=== PATIENT | male | born 1965 | race Caucasian/White ===

== ENCOUNTER → 2021-08-18 | Outpatient (CLI) | payer BC ==
--- NOTE | 2021-08-18 15:08 | RAD ---
EXAM: Bilateral diagnostic mammogram; bilateral breast sonogram. HISTORY: 55-year-old male with a history of gynecomastia presents with a right breast lump. TECHNIQUE: Full-field digital craniocaudal and mediolateral oblique views of both breasts are obtaine d for evaluation. Computer aided detection was applied. Sonographic imaging of the right breast targe fabricio to the site of palpable concern and comparison images of the left breast were also obtained. COMPARISON: None. BREAST PARENCHYMAL DENSITY: Level A - Mostly fat. FINDINGS: There is slight asymmetric increased density within the subareolar aspect of the right grea ter than left breast, the appearance of which favors gynecomastia. No suspicious calcification or arc hitectural distortion is seen. Sonographic imaging of both breasts demonstrates slight right greater than left gynecomastia and righ t subareolar ductal ectasia. No suspicious solid lesion is seen. IMPRESSION: 1. Mammographic and sonographic findings to consistent with asymmetric right greater than left gyneco mastia. Correlate for underlying medication or endocrine related etiologies. There is suspected super imposed right subareolar ductal ectasia. No suspicious sonographic or mammographic lesion is seen. Co ntinued clinical follow-up of palpable abnormality is recommended. Negative imaging should not preclu de the decision to biopsy a palpable abnormality if there is continued concern. 2. BI-RADS Category 2: Benign finding(s). If your mammogram demonstrates that you have dense breast tissue, which could hide abnormalities, and if you have other risk factors for breast cancer that have been identified, you might benefit from s upplemental screening tests that may be suggested by your ordering physician. Dense breast tissue, i n and of itself, is a relatively common condition. This information is not provided to cause undue c oncern, but rather to raise your awareness and to promote discussion with your physician regarding th e presence of other risk factors, in addition to dense breast tissue. A report of your mammography re sults will be sent to you and your physician. You should contact your physician if you have any ques tions or concerns regarding this report. Mammography is a sensitive method for finding small breast cancers, but it does not detect them all a nd is not a substitute for careful clinical examination. A negative mammogram does not negate a clin ically suspicious finding and should not result in delay in biopsying a clinically suspicious abnorma lity. PQRS compliance statement - Patient information was entered into a reminder system with a target due date for the next mammogram. "Our facility is accredited by the [employer] Mammography [employer]." Electronically signed by: Netta Long MD (08/18/2021 3:06 PM) [id number]
== END ==
LOC: MAMMO 13:30
PROVIDERS: ATTEND Family Medicine
DX: N62 Hypertrophy of breast (principal)
CPT/HCPCS: 77066; 76642-50